=== PATIENT | male | born 1960 | race Caucasian/White ===

== ENCOUNTER 2016-08-21 14:39 | Emergency (ER) | payer MEDICARE, OTHER ==
--- NOTE | 2016-08-21 15:05 | ERNOTE ---
Medical Problem HPI - General Chief Complaint: General Assessment Time Seen by Provider: 08/21/16 14:40 Source: patient, family Exam Limitations: no limitations - Immun/Allergies/Home Medications Immunizations: IMMUNIZATION HX Immunizations Up to Date Yes History of Influenza Vaccine No Hx Pneumococcal Vaccination No Allergies/Adverse Reactions: Allergies bee sting Allergy (Severe, Uncoded 05/26/15 07:09) THROAT SWELLING Home Medications: HOME MEDICATIONS Albuterol Sulfate [Albuterol Sulfate 2.5 MG/0.5ML] 1 vial IH Q4H PRN 08/21/16 [ Last Taken Unknown] Fluticasone/Salmeterol [Advair 100-50 Diskus] 1 each IH BID 08/21/16 [Last Taken Unknown] Tiotropium [place] [Spiriva] 1 cap IH DAILY 08/21/16 [Last Taken Unknown] - History of Present History Narrative: Patient is sighning in to the ER as he is concerned that he might be having a stroke. Yesterday he woke up from a quick nap around 18:00 and felt numb all over, felt weak all over and had a severe headache. His symptoms eventually subsided and the headache and generalized weakness returned just prior to coming here. The patients story is allover the place. He states that he needed his 's assistance last night to get dressed as he couldn't move his left arm. When asked if he could move the right arm patient states 'I didn't try'. States that his vision is blurry at times. His is concerned about his speech as well. He has history of COPD and chronic back pain. He is on disability for the latter Review of Systems - Review of Systems Constitutional: Absent: recent illness, fever EYE: Present: blurred vision ENT: Absent: nose pain, nose congestion Respiratory: Present: cough - chronic. Absent: shortness of breath Cardiology: Absent: chest pain Gastrointestinal/Abdominal: Absent: nausea, vomiting, abdominal pain Genitourinary: Present: no symptoms reported Musculoskeletal: Present: back pain - chronic Neurological: Present: See HPI, headache, numbness - generalized - Patient's Past Medical History Patient History - Medical: Chronic Pain, Other Patient History - Cardiac/Respiratory: COPD, Hypertension Patient History - Cancer: No Hx of Cancer Patient History - Surgical Procedures: Colonoscopy, Hernia Repair Patient History - Other: None - Social History Living Situations: home Abuse History: No History of abuse Psych History: No pertinent hx Smoking Status: Current every day smoker Have you smoked in the past 12 months: Yes Alcohol Use: none Drug Use: none, marijuana - Immunizations Immunizations Up to Date: Yes Hx Pneumococcal Vaccination: No History of Influenza Vaccine: No Physical Exam - Physical Exam General Appearance: Present: wd/wn, alert, no apparent distress Eye Exam: Normal inspection: bilateral, PERRL: bilateral, EOMI: bilateral Ears, Nose, Throat: Present: normal ENT inspection, normal pharynx Neck: Present: normal inspection, nontender, supple, full range of motion Respiratory: Present: no respiratory distress, no accessory muscle use, lungs clear, decreased breath sounds Cardiovascular/Chest: Present: regular rate, rhythm, no murmur Gastrointestinal/Abdominal: Present: nontender Extremity Exam: Present: no edema Neurological Exam: Present: alert, oriented, normal mood/affect, no motor/ sensory deficits, 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 - Vital Signs Patient's Vital Signs:: I have reviewed the patient's vital signs. Vital Signs: Vital Signs 08/21/16 14:40 Temperature 36.9 C Pulse Rate 83 Respiratory 12 Rate Blood Pressure 157/94 O2 Sat by Pulse 97 Oximetry - EKG EKG: NSR, no ST T wave changes, unchanged from - 04/2015, other - no acute changes EKG read: Interp. by me - X-Ray X-Ray #1 X-Ray: chest - no acute Interpretation: Reviewed by me - CT/Ultrasound CT/Ultrasound Narrative: CT head: no acute findings - Progress/Reassessment Chief Complaint: General Assessment Progress Note-Subjective: 08/21/16 16:17 patient states that he feels better since resting here, now tells me that he was out fishing for a few hours in the afternoon yesterday , then ate very salty popcorn prior to taking a nap, does not drink much water, but felt a lot better last night after drinking some explained results, patient ready to home Departure - Departure Clinical Impression: Paresthesia Headache Qualifiers: Headache type: unspecified Headache chronicity pattern: acute headache Intractability: not intractable Qualified Code(s): R51 - Headache Disposition: Home self-care Condition: Good Instructions: Paresthesia, [id number] Additional Instructions: make sure you drink more water; call the clinic to get established with a family doctor Referrals: Sunny Bhatt, [Staff Physician] -
[2016-08-21 15:10] LABS: Hematocrit 38.6 % (42.0-52.0); Hemoglobin 13.3 gm/dL (13.5-18.0); Mean Cell Volume 90.2 fl (78-100); Mean Corpuscular Hemoglobin 31.1 pg (27-31); Mean Corpuscular Hgb Conc 34.5 g/dl (32-36); Mean Platelet Volume 9.8 fl (6.0-9.5); Neutrophil # 6.6 K/mm3 (1.3-6.0); Neutrophil % 59.8 % (42-75.0); Platelet Count 269 K/mm3 (150-450); Red Blood Count 4.28 M/mm3 (4.7-6.0); Red Cell Distribution Width 13.4 % (11.5-14.0)
[2016-08-21 15:31] LABS: Albumin * 3.8 gm/dl (3.4-5.0); Anion Gap 11.6 mmol/L (6.8-13.8); BUN/Creatinine Ratio 13.6 (9.0-21.6); Bilirubin, Total 0.3 mg/dL (0.0-1.1); Ca. Corrected For Albumin 8.9 mg/dL (8.4-10.2); Calcium * 9.1 mg/dL (7.9-10.9); Carbon Dioxide 27.1 mmol/L (24-32.6); Potassium 3.7 mmol/L (3.4-4.6); TSH * 0.781 uIU/mL (0.358-3.74); Total Protein 6.9 gm/dL (6.2-8.2)
[2016-08-21 16:24] VITALS: BP 125/86
== END 2016-08-21 16:23 | disposition home or self-care (01) ==
LOC: ER 14:39
DX: R20.2 Paresthesia of skin (principal); R51 Headache; J44.9 Chronic obstructive pulmonary disease, unspecified; F17.200 Nicotine dependence, unspecified, uncomplicated